=== PATIENT | female | born 1980 | race Caucasian/White ===

== ENCOUNTER 2017-04-16 10:27 | Emergency (ER) | payer OTHER ==
[~2017-04-16] VITALS: Ht 160 cm; Wt 111.1 kg
--- NOTE | ~2017-04-16 | CT2 ---
[facility] A Service of [facility] RADIOLOGY TEXT RESULTS PATIENT: STEVAN RIVAS LOCATION: [facility] : 76 UNIT #: [id number] AGE: [address]: Tyler Casillas DO SEX: F ORDER DR: [id number] [facility] [address] [place], [place] [address] [id number] E MR#: [id number] Acc #: [id number] NAME: STEVAN RIVAS : 1980 SEX: F STUDY DATE/TIME: 04/16/2017 13:00 UNIT: [facility] ROOM: STUDY DESCRIPTION: CT Abd and Pelv W Cont Attending Physician: Tyler Casillas D.O. Ordering Physician: Tyler Casillas D.O. Primary Care Physician: No Primary Care Physician MEDICAL IMAGING REPORT This report is preliminary unless electronic signature is present EXAM CT abdomen and pelvis with contrast 04/16/2017 at 1300 hours HISTORY A 36-year-old woman with abdominal pain, bilateral flank pain for 6 days. No bowel movement. COMPARISON CT abdomen and pelvis 06/17/[address] images were obtained from the lung bases through the pubic symphysis with oral and intravenous contrast. Sagittal and coronal reconstructions were performed. Contrast was Isovue-370 100 mL IV. Total exam DLP 1159 mGy/cm. This CT exam was performed with one or more of the following radiation dose reduction techniques: automatic exposure control, adjustment of mA and/or kV according to patient size, and iterative reconstruction. FINDINGS Images through the lung bases demonstrate minimal linear scar at the lateral left lung base. The lung bases are otherwise clear. There are no effusions. The distal esophagus is normal. Images through the abdomen demonstrate a normal-sized liver and spleen. There are clips consistent with cholecystectomy. The pancreas, pancreatic duct and common bile ducts are normal. The adrenal glands are normal. The kidneys enhance normally. There is no mass or stone. There is no distension or ureterectasis. The bladder is normal. The stomach is poorly opacified and poorly distended but does appear [facility] of [facility] RADIOLOGY TEXT RESULTS PATIENT: STEVAN RIVAS LOCATION: [facility] : 76 UNIT #: [id number] AGE: [address]: Tyler Casillas DO SEX: F ORDER DR: rona. Small bowel is well opacified throughout the proximal and mid colon but not well opacified at the terminal ileum. The terminal ileum does appear normal. There is no evidence of appendicitis. The colon is unopacified. There is no colonic distension. The colon is decompressed from the distal transverse colon to the rectum. There is no evidence of constipation. Bone window images demonstrate degenerative disc disease at L2-3 and in the lower thoracic spine. No fracture. IMPRESSION 1. No renal or ureteral calculi. The kidneys appear normal. 2. Cholecystectomy change with no bile duct dilatation. The pancreas is normal. 3. The terminal ileum, cecum and appendix are normal. 4. The stool is only seen in the right colon. The colon is completely decompressed from the distal transverse colon to the rectum. No rectal wall thickening is seen. Dictated by... Nani Bernstein M.D. THIS IS AN ELECTRONICALLY VERIFIED REPORT Nani Bernstein M.D. at 04/16/2017 9:21 PM Isha TD: 04/16/2017 19:02 JOB #: [id number] MEDICAL IMAGING REPORT Page 1 of 1 COPY
[2017-04-16 11:38] LABS: BASOPHIL% 0.4 % (0-2.5); EOSINOPHIL# 0.5 X10e3 (0-0.7); EOSINOPHIL% 4.4 % (0.0-7.0); HEMATOCRIT 37.3 % (35.0-45.0); HEMOGLOBIN 12.3 gm/dL (12.0-16.0); LYMPHOCYTE# 2.7 X10e3 (1.0-3.5); LYMPHOCYTE% 22.7 % (17.0-45.0); MEAN CELL VOLUME 91.5 FL (83-96); MEAN CORPUSCULAR HEMOGLOBIN 30.3 PG (28-34); MEAN CORPUSCULAR HGB CONC 33.1 g/dL (30-36); MEAN PLATELET VOLUME 8.1 FL (6.5-11.5); MONOCYTE# 1.1 X10e3 (0-1.0); MONOCYTE% 8.7 % (3.0-12.0); NEUTROPHIL# 7.7 X10e3 (1.5-7.1); NEUTROPHIL% 63.8 % (40-75); PLATELET COUNT 252 X10e3 (140-420); RED BLOOD COUNT 4.07 X10e (3.90-5.30); RED CELL DISTRIBUTION WIDTH 13.5 % (11.0-15.5); WHITE BLOOD COUNT 12.1 X10e3 (4.0-10.5)
[2017-04-16 11:39] LABS: DIFF IND NO
[2017-04-16 11:48] LABS: URINE SOURCE CLEAN CATCH
[2017-04-16 11:58] LABS: URINE APPEARANCE CLEAR; URINE BILIRUBIN NEG (NEG); URINE BLOOD NEG (NEG); URINE COLOR YELLOW; URINE GLUCOSE NEG (NEG); URINE KETONE NEG (NEG); URINE LEUKOCYTE ESTERASE NEG (NEG); URINE NITRATE NEG (NEG); URINE PH 5.5 (5-8); URINE PROTEIN NEG (NEG); URINE SPECIFIC GRAVITY 1.008 (1.003-1.035); URINE UROBILINOGEN 0.2 MG/DL (NEG)
[2017-04-16 12:01] LABS: CULTURE INDICATED? NO
[2017-04-16 12:19] LABS: ALBUMIN SERUM 3.6 g/dL (3.5-5.0); ALKALINE PHOSPHATASE 75 U/L (32-92); ALT (SGPT) 20 U/L (10-40); AST (SGOT) 21 U/L (10-42); BILIRUBIN,TOTAL 0.4 mg/dL (0.2-2.0); BLOOD UREA NITROGEN 10 mg/dL (9-23); CARBON DIOXIDE 24 mmol/L (22-31); CHLORIDE 108 mmol/L (100-111); CREATININE SERUM 0.8 mg/dL (0.6-1.4); GLOM FILT RATE Estimated 93.6 mL/min (>60); GLUCOSE FASTING 96 mg/dL (70-110); LIPASE 18 U/L (22-51); POTASSIUM 3.1 mmol/L (3.5-5.1); PROTEIN TOTAL SERUM 7.4 g/dL (6.0-8.3); SODIUM 140 mmol/L (135-145)
[2017-04-16 12:20] LABS: BILIRUBIN, DIRECT <0.1 mg/dL (0.0-0.2); BILIRUBIN,INDIRECT 0.3 mg/dL (0.0-0.9)
== END 2017-04-16 14:48 | disposition home or self-care (01) ==
LOC: CED 10:27
PROVIDERS: Emergency Medicine
DX: R10.9 Unspecified abdominal pain (principal); R11.0 Nausea; I10 Essential (primary) hypertension; Z90.49 Acquired absence of other specified parts of digestive tract; Z90.710 Acquired absence of both cervix and uterus; Z88.0 Allergy status to penicillin; Z88.6 Allergy status to analgesic agent
CPT/HCPCS: 36415; 74177; 80048; 80076; 81003; 83690; 84703; 85025; 96361; 96374; 99285; J2405; Q9967